=== PATIENT | male | born 1985 | race Caucasian/White ===

== ENCOUNTER 2020-11-04 07:49 | Emergency (ER) | payer BC ==
[2020-11-04] MEDS ORDERED: Boostrix 0.5 ML (Tdap) VIAL ONE (07:59)
[2020-11-04] MEDS ORDERED: Proparacaine 0.5% Opth 15 ML BOT ONE (08:10)
[2020-11-04] MEDS ORDERED: Bupivacaine 0.5% 10 ML VIAL ONE (08:11)
--- NOTE | 2020-11-04 08:28 | RAD ---
Exam:3 views left hand HISTORY: Palm laceration. COMPARISON: None FINDINGS: No fracture, cortical irregularity or periosteal reaction. Preserved joint spaces. No radio paque foreign body. IMPRESSION: No fracture. No radiopaque foreign body.
[2020-11-04] MEDS ORDERED: Bacitracin 1 PK ONE (08:35)
== END 2020-11-04 08:48 | disposition home or self-care (01) ==
LOC: ERS 07:49
DX: S61.412A Laceration without foreign body of left hand, initial encounter (principal); W45.8XXA Other foreign body or object entering through skin, initial encounter
CPT/HCPCS: 12002; 90471; 90715; J3490